=== PATIENT | male | born 1975 | race African-American/Black ===

== ENCOUNTER 2022-11-08 14:12 | Outpatient (CLI) | payer OTHER | END 2022-11-08 14:13 | disposition home or self-care (01) | LOC: NAV RAD 14:12 | PROVIDERS: ATTEND Family Medicine | DX: M47.26 Other spondylosis with radiculopathy, lumbar region (principal); R29.890 Loss of height; M46.06 Spinal enthesopathy, lumbar region | CPT/HCPCS: 72100 ==